=== PATIENT | female | born 1985 | race Caucasian/White ===

== ENCOUNTER 2016-09-08 02:41 | Emergency (ER) | payer BC ==
[~2016-09-08 02:41] MED LIST: AUGMENTIN PO; BACTRIM DS TABL1 TA1 PO; CANASA1000 MG/SU PR; CIPRO PO; FLOMAX0.4 MG PO; LORTAB 5-325 M1 EACH PO; NO MEDICATIONS; NO MEDS; PHENERGAN PO; PHENERGAN25 MG PO; PYRIDIUM PO; TYLOX 5/500 CAP1 CAP PO; UNKNOWN EYE DROP; ZOFRAN ODT4 MG PO
== END 2016-09-08 02:45 | disposition home or self-care (01) ==
LOC: SED 02:41
DX: L03.114 Cellulitis of left upper limb (principal); L03.113 Cellulitis of right upper limb; F19.10 Other psychoactive substance abuse, uncomplicated
CPT/HCPCS: 99282